=== PATIENT | male | born 1980 | race Caucasian/White ===

== ENCOUNTER 2016-12-30 17:22 | Emergency (ER) | payer OTHER ==
[~2016-12-30] VITALS: Ht 182.9 cm; Wt 93.0 kg
[2016-12-30] MEDS ORDERED: ORPHENADRINE 60 MG/2 ML (NORFLEX) AMP IM ONE (17:45)
[2016-12-30] MEDS ORDERED: ONDANSETRON 4 MG (ZOFRAN) ORAL DISSOLVE TAB PO ONE (17:45)
[2016-12-30] MEDS ORDERED: morphine INJ 10 MG/ML 1 ML VIAL IM ONE (17:45)
[2016-12-30 18:50] VITALS: BP 104/72
[2016-12-30] MEDS ORDERED: ED- oxyCODONE/ACETAMINOPHEN 5MG-325MG (PERCOCET) 8 TABLETS/BTL PO ONE (18:50)
[2016-12-30] MEDS ORDERED: ED- CYCLOBENZAPRINE 10 MG (FLEXERIL) 3 TABLETS/BTL PO ONE (18:50)
== END 2016-12-30 18:57 | disposition home or self-care (01) ==
LOC: ED 17:24
DX: S70.12XA Contusion of left thigh, initial encounter (principal); V89.0XXA Person injured in unspecified motor-vehicle accident, nontraffic, initial encounter; Y93.89 Activity, other specified; Y92.830 Public park as the place of occurrence of the external cause; V28.4XXA Motorcycle driver injured in noncollision transport accident in traffic accident, initial encounter
CPT/HCPCS: 73552; 99282; J2270; J2360; 96372; 99283